=== PATIENT | female | born 1960 | race Caucasian/White ===

== ENCOUNTER 2018-11-22 06:14 | Day surgery (SDC) | payer OTHER ==
[~2018-11-22] VITALS: Ht 160 cm; Wt 83.2 kg
[2018-11-22] MEDS ORDERED: IBUPROFEN (06:57)
[2018-11-22] MEDS ORDERED: HYDROCODONE (06:57)
[2018-11-22] MEDS ORDERED: CHOLESTEROL MED (06:57)
[2018-11-22 06:58] VITALS: Ht 160 cm; Wt 83.2 kg
[2018-11-22 07:28] VITALS: BP 149/72; PULSE 60; RESP 15
--- NOTE | 2018-11-22 08:20 | PREAC ---
Date/Time of Note Date/Time of Note DATE: 11/22/18 TIME: 08:18 Anesthesia Eval and Record Evaluation Time Pre-Procedure Interview DATE: 11/22/18 TIME: 08:18 Age 58 Sex female NPO: 8 hrs Preoperative diagnosis Screening Planned procedure Colonoscopy Past Medical History Past Medical History: Includes Cardio: Dyslipidemia Neuro: Other (Hx of Polio) Surgery & Anesthesia Issues No known issue Meds Anticoagulation: No Beta La within 24 hr: No Reason Beta La not given: Pt. not on B-La Reported Medications [Hydrocodone] No Conflict Check 11/22/18 [Ibuprofen] No Conflict Check 11/22/18 [Cholesterol Med] No Conflict Check 11/22/18 Meds reviewed: Yes Allergies Coded Allergies: No Known Allergy (Unverified , 11/22/18) Allergies Reviewed: Yes Labs/Studies Labs Reviewed: Reviewed by anesthesiologist test: N/A Studies: ECG (n/a), CXR (n/a) Pre-procedure Exam Last vitals Vital Signs Date Temp Pulse Resp B/P (MAP) Pulse Ox O2 O2 Flow FiO2 Time Delivery Rate 11/22/18 60 15 149/72 97 Room Air 07:28 (97) Airway: Adequate mouth opening, Adequate thyromental dist Mallampati: Mallampati II Teeth: Normal Lung: Normal Heart: Normal ASA Physical Status ASA physical status: 2 Emergency: None Planned Anesthetic General/MAC: MAC Planned Pain Management Parenteral pain med Pre-operative Attestations Prior to commencing anesthesia and surgery, the patient was re-evaluated, there was verification of: *The patient's identity *The results of appropriate recent lab work and preoperative vital signs *The above evaluation not changing prior to induction *Anesthetic plan, risk benefits, alternative and complications discussed with patient/family; questions answered; patient/family understands, accepts and wishes to proceed. FRANCISCO DUENAS MD Nov 22, 2018 08:20
[2018-11-22] MEDS ORDERED: PROPOFOL 60 ML ONE (08:49)
--- NOTE | 2018-11-22 08:51 | PAC ---
Date/Time of Note Date/Time of Note DATE: 11/22/18 TIME: 08:50 Post-Anesthesia Notes Post-Anesthesia Note Last documented vital signs Vital Signs Date Temp Pulse Resp B/P (MAP) Pulse Ox O2 O2 Flow FiO2 Time Delivery Rate 11/22/18 98.1 60 15 149/72 97 Room Air 09:05 (97) Activity: WNL Respiratory function: WNL Cardiovascular function: WNL Mental status: Baseline Pain reasonably controlled: Yes Hydration appropriate: Yes Nausea/Vomiting absent: Yes FRANCISCO DUENAS MD Nov 22, 2018 08:51
[2018-11-22 09:21] VITALS: BP 135/71; PULSE 56; RESP 15
== END 2018-11-22 10:10 | disposition home or self-care (01) ==
LOC: GIL 06:14
PROVIDERS: ATTEND Internal Medicine Gastroenterology
DX: Z12.11 Encounter for screening for malignant neoplasm of colon (principal); K64.8 Other hemorrhoids; D12.5 Benign neoplasm of sigmoid colon; K57.30 Diverticulosis of large intestine without perforation or abscess without bleeding; E78.5 Hyperlipidemia, unspecified
CPT/HCPCS: 45385; Z7610; 88305